=== PATIENT | female | born 1980 ===

== ENCOUNTER 2022-09-21 11:25 | Emergency (ER) | payer SELFPAY ==
[2022-09-21 12:26] LABS: BILIRUBIN,URINE NEGATIVE (NEGATIVE); COLOR,URINE YELLOW; GLUCOSE,URINE >=1000 mg/dL (NEGATIVE); KETONES,URINE NEGATIVE (NEGATIVE); LEUKOCYTE ESTERASE,URINE SMALL (NEGATIVE); NITRITE,URINE NEGATIVE (NEGATIVE); OCCULT BLOOD,URINE TRACE-LYSED (NEGATIVE); PROTEIN,URINE NEGATIVE (NEGATIVE); UROBILINOGEN,URINE 0.2 EU/dL (<2.0)
[2022-09-21 12:29] LABS: APPEARANCE,URINE HAZY
[2022-09-21 12:38] LABS: BACTERIA,URINE RARE (NEGATIVE); EPITHELIAL CELLS,URINE RARE (NONE-FEW)
[2022-09-21 13:40] LABS: CANDIDA DNA PROBE NEGATIVE (NEGATIVE); GARDNERELLA DNA PROBE NEGATIVE (NEGATIVE); TRICHOMONAS DNA PROBE POSITIVE (NEGATIVE)
[2022-09-21] MEDS ORDERED: metroNIDAZOLE 250 MG Tab PO ONE (13:48)
[2022-09-21 14:28] LABS: C. TRACHOMATIS BY PCR NOT DETECTED; N. GONORRHOEAE BY PCR NOT DETECTED
== END 2022-09-21 15:28 | disposition home or self-care (01) ==
LOC: MW.ED 11:25
DX: A59.01 Trichomonal vulvovaginitis (principal); I10 Essential (primary) hypertension; E11.9 Type 2 diabetes mellitus without complications; E03.9 Hypothyroidism, unspecified; Z86.16 Personal history of COVID-19; Z88.0 Allergy status to penicillin; Z79.82 Long term (current) use of aspirin; Z79.84 Long term (current) use of oral hypoglycemic drugs; Z79.899 Other long term (current) drug therapy; Z90.89 Acquired absence of other organs; Z90.49 Acquired absence of other specified parts of digestive tract
CPT/HCPCS: 74176; 81001; 81025; 87086; 87480; 87491; 87510; 87591; 87660; 99284; A9270; 99283